=== PATIENT | male | born 1955 | race Caucasian/White ===

== ENCOUNTER 2017-03-09 16:51 | Emergency (ER) | payer OTHER ==
--- NOTE | 2017-03-09 17:51 | CT ---
CT OF CERVICAL SPINE NONCONTRAST 03/09/17 INDICATION: Neck pain. FINDINGS: There is patient motion which degrades image quality and limits the evaluation. Evidence of anterior metallic fusion spans the C4 through C6 levels with intradiscal space devices at C4-5 and C5-6. No definite evidence for hardware complication. Multilevel degenerative change of the cervical spine is present without acute fracture visualized. Craniocervical junction is intact. IMPRESSION: Postoperative cervical spine with multilevel degenerative change. No acute fracture is seen. POS: [facility]
== END 2017-03-09 18:00 | disposition home or self-care (01) ==
LOC: MADERS 16:51
DX: S16.1XXA Strain of muscle, fascia and tendon at neck level, initial encounter (principal); F17.210 Nicotine dependence, cigarettes, uncomplicated; Z86.14 Personal history of Methicillin resistant Staphylococcus aureus infection; X58.XXXA Exposure to other specified factors, initial encounter
CPT/HCPCS: 72125

== ENCOUNTER 2018-06-03 15:03 | Emergency (ER) | payer OTHER ==
[2018-06-03] MEDS ORDERED: Ketorolac Tromethamine 60 MG/2 ML VIAL ONE (16:06)
--- NOTE | 2018-06-03 18:24 | CT ---
CT HEAD WITHOUT CONTRAST: INDICATIONS: Fall with injury to head. TECHNIQUE: Multiple axial tomograms obtained through the head without IV enhancement. FINDINGS: The ventricles have normal size and position. Mild cortical volume loss. No evidence of intracrania l hemorrhage or mass. No evidence of cortical infarct. The paranasal sinuses are well aerated. The bony calvarium appears intact. IMPRESSION: No acute findings. POS: [facility]
--- NOTE | 2018-06-03 18:29 | CT ---
NONCONTRAST CT CERVICAL SPINE: Date: 06/03/18 HISTORY: Patient fell out of chair 5 days ago. Patient now has continued neck pain. COMPARISON: 03/09/17. TECHNIQUE: Contiguous axial CT images are obtained through the cervical spine from the skull base to the level o f the T2 vertebral body. Sagittal and coronal reformatted images are provided. FINDINGS: Again noted are postsurgical changes related to anterior cervical fusion with anterior plate and scre ws transfixing the C4-5 and C5-6 levels. Interbody fusion material is seen at these levels as well. N o hardware complication is seen. Multilevel degenerative changes are again present. There is no fract ure or subluxation involving the cervical spine. CT cervical spine is overall stable from prior exam. IMPRESSION: 1. Postoperative changes and multilevel degenerative changes of the cervical spine. 2. No fracture or subluxation involving the cervical spine. POS: [facility]
== END 2018-06-03 17:00 | disposition home or self-care (01) ==
LOC: MADERS 15:03
DX: S16.1XXA Strain of muscle, fascia and tendon at neck level, initial encounter (principal); S00.03XA Contusion of scalp, initial encounter; F17.210 Nicotine dependence, cigarettes, uncomplicated; W22.8XXA Striking against or struck by other objects, initial encounter
CPT/HCPCS: 70450; 72125; 96372; J1885

== ENCOUNTER 2019-04-01 13:39 | Emergency (ER) | payer OTHER ==
[~2019-04-01 13:39] MED LIST: Sodium Chloride 0.9% 1,000 ML BAG ONE; Sodium Chloride 0.9% 500 ML BAG ONE
--- NOTE | 2019-04-01 14:27 | RAD ---
XR Chest 1 View Portable HISTORY: Tachycardia COMPARISON: 09/13/2016 FINDINGS: The heart size is normal. The lungs are well expanded without focal areas of consolidation, pneumothorax or pleural effusions. Old right-sided rib fractures are again noted. IMPRESSION: No radiographic evidence of acute cardiopulmonary process.
[2019-04-01 14:28] LABS: #Basophils 0.1 thou/uL (0.0-0.2); #Eosinphils 0.4 thou/uL (0.0-0.7); #Lymphocytes 1.5 thou/uL (1.20-3.40); #Monocytes 0.6 thou/uL (0.11-0.59); #Neutrophils 4.5 thou/uL (1.40-6.50); %Basophils 1.1 % (0.0-1.0); %Eosinophils 5.6 % (0.0-10.0); %Neutrophils 64.4 % (42.0-75.0); Hemoglobin 12.3 g/dL (14.0-18.0); Mean Corpuscular HGB CONC 35.2 g/dL (32.0-36.0); Mean Corpuscular Hemoglobin 32.7 pg (27.0-31.0); Mean Corpuscular Volume 92.8 fL (78.0-98.0); Mean Platelet Volume 5.5 fL (7.4-10.4); Platelet Count 282 thou/uL (130-400); RBC Distribution Width 11.2 % (11.5-14.5); Red Blood Cell (RBC) Count 3.77 mill/uL (4.70-6.10)
[2019-04-01] MEDS ORDERED: Metoprolol Tartrate 5 MG/5 ML VIAL ONE (14:33)
[2019-04-01] MEDS ORDERED: Thiamine HCl 200 MG/2 ML VIAL ONE (14:33)
[2019-04-01 14:36] LABS: INR-International Normal Ratio 1.1; PTT 39.1 SEC (22.9-36.1); Prothrombin Time 14.2 SEC (12.0-14.7)
[2019-04-01 14:43] LABS: ALT (SGPT) 13 U/L (8-55); AST (SGOT) 22 U/L (5-34); Albumin 4.3 g/dL (3.4-4.8); Alkaline Phosphatase 90 U/L (40-150); Anion Gap 16 mmol/L (10-20); BUN (Urea Nitrogen) 19 mg/dL (8.4-25.7); Bilirubin, Total 1.1 mg/dL (0.2-1.2); Calc. Creatinine Clearance 0 mL/min (70-130); Calcium 9.7 mg/dL (7.8-10.44); Carbon Dioxide 23 mmol/L (23-31); Chloride 92 mmol/L (98-107); Estimated GFR-MDRD 45; Glucose 100 mg/dL (80-115); Potassium 4.2 mmol/L (3.5-5.1); Protein, Total 7.3 g/dL (5.8-8.1); Sodium 127 mmol/L (136-145)
[2019-04-01 14:44] LABS: D-Dimer Test Less than 0.27 *mcg/mL (0.27-0.43)
[2019-04-01] MEDS ORDERED: Multivit, Adult Inj 10 ML VIAL ONE (14:58)
[2019-04-01] MEDS ORDERED: Lorazepam 2 MG/ML VIAL ONE (14:59)
[2019-04-01 15:22] LABS: Bilirubin Negative (Negative); Blood, Urine Trace (Negative); Clarity Clear (Clear); Glucose, Urine (Dipstick) Negative (Negative); Leukocyte Negative (Negative); Nitrite Negative (Negative); Protein, Urine (Dipstick) Negative (Neg-Trace); Urobilinogen 0.2 mg/dL (Less than 2)
[2019-04-01 15:26] LABS: Bacteria/HPF Rare-Few HPF (None Seen); RBC/HPF 0-3 HPF (0-3); Squamous Epithelial 0-3 HPF (0-3); WBC/HPF 0-3 HPF (0-3)
== END 2019-04-01 15:45 | disposition short-term general hospital (02) ==
LOC: MADERS 13:39
DX: I48.91 Unspecified atrial fibrillation (principal); E87.1 Hypo-osmolality and hyponatremia; F17.210 Nicotine dependence, cigarettes, uncomplicated; Z79.899 Other long term (current) drug therapy
CPT/HCPCS: 71045; 80053; 80307; 81003; 81015; 83605; 84443; 84484; 85025; 85379; 85610; 85730; 93005; 94760; 96361; 96372; 96374; 96375; J2060; J3411; J7050

== ENCOUNTER 2019-05-01 12:52 | Outpatient (CLI) | payer OTHER ==
--- NOTE | 2019-05-01 13:21 | CT ---
EXAM: CT brain without contrast HISTORY: Difficulty walking. Stroke like symptoms COMPARISON: 06/03/2018 TECHNIQUE: Multiple contiguous axial images were obtained and a CT of the brain without contrast. FINDINGS: There are scattered hypodensities in the subcortical and periventricular white matter consi stent with small vessel ischemic disease. There is no evidence of hydrocephalus, intracranial hemorrhage, or extra-axial fluid collection. The calvarium and overlying soft tissues are unremarkable. The visualized paranasal sinuses and masto id air cells are well aerated. IMPRESSION: No evidence of acute intracranial abnormality
== END 2019-05-01 12:53 | disposition home or self-care (01) ==
LOC: MADCT 12:52
PROVIDERS: ATTEND Family Medicine
DX: R29.90 Unspecified symptoms and signs involving the nervous system (principal)
CPT/HCPCS: 70450

== ENCOUNTER 2019-07-20 11:58 | Emergency (ER) | payer OTHER ==
--- NOTE | 2019-07-20 13:56 | RAD ---
RIGHT HUMBERUS FRONTAL AND LATERAL IMAGIN07/20/2019 HISTORY: Pain. COMPARISON: None. FINDINGS: No acute fracture. IMPRESSION: No acute osseous abnormality. POS: [facility]
== END 2019-07-20 14:35 | disposition home or self-care (01) ==
LOC: MADERS 11:58
DX: S43.401A Unspecified sprain of right shoulder joint, initial encounter (principal); S40.021A Contusion of right upper arm, initial encounter; W18.30XA Fall on same level, unspecified, initial encounter

== ENCOUNTER 2019-10-05 08:50 | Emergency (ER) | payer OTHER ==
[2019-10-05 09:32] LABS: #Basophils 0.1 thou/uL (0.0-0.2); #Eosinphils 0.3 thou/uL (0.0-0.7); #Lymphocytes 1.7 thou/uL (1.20-3.40); #Monocytes 0.8 thou/uL (0.11-0.59); #Neutrophils 4.3 thou/uL (1.40-6.50); %Basophils 0.9 % (0.0-1.0); %Eosinophils 3.7 % (0.0-10.0); %Lymphocytes 23.7 % (21.0-51.0); %Monocytes 11.1 % (0.0-10.0); %Neutrophils 60.7 % (42.0-75.0); Hemoglobin 13.4 g/dL (14.0-18.0); Mean Corpuscular HGB CONC 32.7 g/dL (32.0-36.0); Mean Corpuscular Hemoglobin 32.2 pg (27.0-31.0); Mean Corpuscular Volume 98.6 fL (78.0-98.0); Mean Platelet Volume 5.9 fL (7.4-10.4); Platelet Count 384 thou/uL (130-400); RBC Distribution Width 11.2 % (11.5-14.5); Red Blood Cell (RBC) Count 4.16 mill/uL (4.70-6.10); White Blood Cell (WBC) Count 7.1 thou/uL (4.8-10.8)
--- NOTE | 2019-10-05 09:36 | RAD ---
EXAM: XR Foot Lt 3 View STANDARD PROVIDED CLINICAL HISTORY: Pain FINDINGS: Comparison 09/18/2019. There is no evidence for fracture or other acute osseous abnormality. Alignment appears anatomic. Alma nt spaces appear preserved. IMPRESSION: No evidence for an acute osseous abnormality. If there is persistent clinical concern, conservative m anagement and follow-up imaging advised.
[2019-10-05 09:46] LABS: ALT (SGPT) 19 U/L (8-55); AST (SGOT) 16 U/L (5-34); Albumin 3.9 g/dL (3.4-4.8); Alkaline Phosphatase 128 U/L (40-110); Anion Gap 15 mmol/L (10-20); BUN (Urea Nitrogen) 17 mg/dL (8.4-25.7); Bilirubin, Total 0.6 mg/dL (0.2-1.2); Calc. Creatinine Clearance 0 mL/min (70-130); Calcium 9.2 mg/dL (7.8-10.44); Carbon Dioxide 23 mmol/L (23-31); Chloride 98 mmol/L (98-107); Estimated GFR-MDRD 58; Glucose 98 mg/dL (80-115); Potassium 4.3 mmol/L (3.5-5.1); Protein, Total 6.9 g/dL (5.8-8.1); Sodium 132 mmol/L (136-145)
[2019-10-05] MEDS ORDERED: Ibuprofen 800 MG TAB ONE (10:41)
[2019-10-05] MEDS ORDERED: Cephalexin 500 MG CAP ONE (11:15)
== END 2019-10-05 13:11 | disposition home or self-care (01) ==
LOC: MADERS 08:50
DX: L97.529 Non-pressure chronic ulcer of other part of left foot with unspecified severity (principal); S91.312D Laceration without foreign body, left foot, subsequent encounter; I48.91 Unspecified atrial fibrillation; I49.9 Cardiac arrhythmia, unspecified; I10 Essential (primary) hypertension; F17.210 Nicotine dependence, cigarettes, uncomplicated; Z79.899 Other long term (current) drug therapy; W22.8XXD Striking against or struck by other objects, subsequent encounter
CPT/HCPCS: 80053; 85025; 85652

== ENCOUNTER 2019-11-06 09:49 | Outpatient (CLI) | payer MEDICARE, OTHER ==
--- NOTE | 2019-11-06 11:22 | RAD ---
CHEST 1 VIEW: Date: 11/06/2019 HISTORY: Edema, peripheral. COMPARISON: 04/03/2019. FINDINGS: Multiple bilateral healed rib fractures with some pleural thickening on the left side primarily. Hear t size is within normal limits. No confluent pneumonia, overt edema, or pleural effusion. Stable left costophrenic angle blunting. IMPRESSION: Stable exam. Stable left costophrenic angle blunting and numerous healed bilateral rib fractures and pleural thickening. No significant new process. POS: [facility]
== END 2019-11-06 09:50 | disposition home or self-care (01) ==
LOC: MADRAD 09:49
PROVIDERS: ATTEND Family Medicine
DX: R60.9 Edema, unspecified (principal); J92.9 Pleural plaque without asbestos
CPT/HCPCS: 71045

== ENCOUNTER 2019-11-08 12:53 | Emergency (ER) | payer MEDICARE, OTHER ==
--- NOTE | 2019-11-08 13:54 | RAD ---
Left foot 3 views HISTORY: Infection. Foot pain. COMPARISON: 10/05/2019. FINDINGS: A 0.4 cm minimally displaced fragment is now present at the apical base of the fifth metata rsal. Soft tissue swelling overlies this site. Scattered mild osteophytosis and degenerative changes throughout the foot. Soft tissue swelling over the dorsum of the foot. IMPRESSION: Minimally distracted Cárdenas fracture at the left fifth metatarsal base with overlying soft tissue defect. The pattern and appearance is that of an interval traumatic injury.
[2019-11-08 14:01] LABS: #Basophils 0.1 thou/uL (0.0-0.2); #Eosinphils 0.2 thou/uL (0.0-0.7); #Lymphocytes 1.2 thou/uL (1.20-3.40); #Monocytes 1.1 thou/uL (0.11-0.59); #Neutrophils 5.9 thou/uL (1.40-6.50); %Basophils 1.1 % (0.0-1.0); %Eosinophils 2.7 % (0.0-10.0); %Lymphocytes 14.3 % (21.0-51.0); %Monocytes 13.3 % (0.0-10.0); %Neutrophils 68.6 % (42.0-75.0); Hemoglobin 10.7 g/dL (14.0-18.0); Mean Corpuscular HGB CONC 33.7 g/dL (32.0-36.0); Mean Corpuscular Hemoglobin 33.5 pg (27.0-31.0); Mean Corpuscular Volume 99.2 fL (78.0-98.0); Mean Platelet Volume 5.1 fL (7.4-10.4); Platelet Count 362 thou/uL (130-400); Red Blood Cell (RBC) Count 3.21 mill/uL (4.70-6.10); White Blood Cell (WBC) Count 8.6 thou/uL (4.8-10.8)
[2019-11-08 14:14] LABS: ALT (SGPT) 17 U/L (8-55); AST (SGOT) 24 U/L (5-34); Albumin 3.6 g/dL (3.4-4.8); Alkaline Phosphatase 103 U/L (40-110); Anion Gap 16 mmol/L (10-20); BUN (Urea Nitrogen) 14 mg/dL (8.4-25.7); Calc. Creatinine Clearance 0 mL/min (70-130); Carbon Dioxide 25 mmol/L (23-31); Chloride 96 mmol/L (98-107); Estimated GFR-MDRD 51; Globulin 2.7 g/dL (2.4-3.5); Glucose 89 mg/dL (80-115); Potassium 3.9 mmol/L (3.5-5.1); Protein, Total 6.3 g/dL (5.8-8.1); Sodium 133 mmol/L (136-145)
[2019-11-08] MEDS ORDERED: Piperacillin/Tazobactam 4.5 GM VIAL ONE (14:50)
[2019-11-08] MEDS ORDERED: Sodium Chloride 0.9% 100 ML ONE ×2 (14:50→15:10)
[2019-11-08] MEDS ORDERED: Sodium Chloride 0.9% 1,000 ML ONE (14:50)
[2019-11-08] MEDS ORDERED: Sodium Chloride 0.9% 250 ML 250 ML ONE (15:25)
== END 2019-11-08 15:40 | disposition short-term general hospital (02) ==
LOC: MADERS 12:53
DX: S92.352B Displaced fracture of fifth metatarsal bone, left foot, initial encounter for open fracture (principal); L97.429 Non-pressure chronic ulcer of left heel and midfoot with unspecified severity; I48.91 Unspecified atrial fibrillation; I10 Essential (primary) hypertension; F17.210 Nicotine dependence, cigarettes, uncomplicated; Z79.899 Other long term (current) drug therapy; X58.XXXA Exposure to other specified factors, initial encounter
CPT/HCPCS: 36415; 80053; 83605; 85025; 86140; 96365; 96375; J2543; J3370; J3490; J7050

== ENCOUNTER 2019-11-14 19:02 | Inpatient (IN) | payer MEDICARE, MEDICAID ==
[2019-11-14] MEDS: HYDROcodone/Acetaminophen 10/325 mg Tablet PO PRN (21:31)
[2019-11-14] MEDS: Gabapentin 300 MG CAP PO SCH (21:32)
[2019-11-14] MEDS: Magnesium Oxide 400 MG TAB PO SCH (21:32)
[2019-11-14] MEDS: Cefepime 1 GM in Sodium Chloride 0.9% 100 ML IVPB SCH (22:09)
[2019-11-15] MEDS: HYDROcodone/Acetaminophen 10/325 mg Tablet PO PRN ×2 (03:45→21:20)
[2019-11-15] MEDS: Digoxin 0.125 MG TAB PO SCH (08:57)
[2019-11-15] MEDS: Clopidogrel Bisulfate 75 MG TAB PO SCH (08:57)
[2019-11-15] MEDS: Bupropion 150 MG XL TAB PO SCH (08:57)
[2019-11-15] MEDS: Losartan 25 MG TAB PO SCH (08:57)
[2019-11-15] MEDS: Magnesium Oxide 400 MG TAB PO SCH ×2 (08:57→21:20)
[2019-11-15] MEDS: Multivit, Therapeutic 1 TAB PO SCH (08:57)
[2019-11-15] MEDS: Potassium Chloride 20 MEQ TAB PO SCH (08:57)
[2019-11-15] MEDS: Carvedilol 12.5 MG TAB PO SCH ×2 (08:57→17:45)
[2019-11-15] MEDS: Aspirin Chewable 81 MG TAB PO SCH (08:57)
[2019-11-15] MEDS: Gabapentin 300 MG CAP PO SCH ×2 (08:57→21:22)
[2019-11-15] MEDS: Nicotine 21 MG PATCH TOP SCH (08:58)
[2019-11-15] MEDS: Hydrochlorothiazide 25 MG TAB PO SCH (08:58)
[2019-11-15] MEDS: Cefepime 1 GM in Sodium Chloride 0.9% 100 ML IVPB SCH (11:05)
[2019-11-15] MEDS: Loratadine 10 MG TAB PO SCH (11:20)
[2019-11-15] MEDS ORDERED: Fluticasone Propionate Nasal Spray 16 gm Bottle NASAL SCH (13:00)
[2019-11-15 13:38] LABS: Vancomycin, Random 14.6 ug/mL (See Comment)
[2019-11-15] MEDS: Vancomycin HCl 1 GM in Sodium Chloride 0.9% 250 ML 250 ML IVPB SCH (14:26)
[2019-11-16] MEDS: Cefepime 1 GM in Sodium Chloride 0.9% 100 ML IVPB SCH ×3 (00:37→22:27)
--- NOTE | 2019-11-16 08:35 | HP ---
PRIMARY CARE PHYSICIAN: Trevor Vaz. REASON FOR ADMISSION: For long-term IV antibiotic, wound care and skilled rehabilitation status post osteomyelitis of the left foot. HISTORY OF PRESENT ILLNESS: Mr. Young is a 64-year-old male with a medical history of ALS, diagnosed 10 years ago. The patient is wheelchair- bound. He has a history of MRSA endocarditis in 2017, completed treatment then, chronic atrial fibrillation with rate controlled. The patient is a poor candidate per Cardiology for anticoagulation and history of urinary retention. The patient presented to the emergency room on November 07 due to draining left foot wound. He stated he had been to the emergency room and his primary care doctor 3-4 times and has been treated with multiple antibiotics but the wound continued to worsen. The patient stated he had been banging his left foot over the floor for the past month and developed a wound to the lateral aspect of the foot that has increased in size. He said he was treated with Keflex and Cipro with no improvement, so he presented to the ED. The patient was subsequently admitted and started on IV vancomycin and Zosyn. He was seen by ID specialist, Dr. He, and wound culture was done. Wound culture grew enterococcus and bautista susceptible Pseudomonas. The patient also had an MRI of his lower extremities and an ultrasound. The MRI did confirm osteomyelitis to the left 5th metatarsal bone. The patient during hospitalization started episodes of diarrhea and he was convinced this was due to the Zosyn, so the patient declined to take Zosyn continuously. ID specialist, Dr. He decided to switch this to cefepime twice a day with continuation of the vancomycin. The patient also had ultrasound done to the foot and this showed mid SFA and distal monophasic signals with tardus parvus waveforms. Due to this, he was seen by Dr. James Herrera who on the , did an abdominal aortogram, left common femoral artery angiogram with left leg runoff, left superficial femoral artery angiogram and percutaneous transluminal angioplasty of the left superficial femoral artery with drug- eluting balloon. The patient tolerated the procedure well. The patient states that he felt improvement after Dr. Herrera performed a revascularization and he could feel some sensation in his left foot compared to before. The decision was made to transfer the patient to [facility] for skilled rehabilitation for long-term antibiotics and wound care prior to discharge back to his home. I saw Mr. Young today and examined him in his room. He was comfortable sitting by the side of his bed, having his lunch. He complained he was upset. The ER doctor he had seen multiple times, did not take his foot injury seriously and this was what caused his osteomyelitis. He was also upset about night nurse as he wanted his bed alarm off. I explained to the patient we will talk to the night nurse and consider his options. The patient wants to continue IV antibiotics twice a day long- term and he is willing to stay in facility for that and get some physical therapy and wound care management. PAST MEDICAL HISTORY: ALS, atrial fibrillation, hypertension, history of MRSA endocarditis in 2017, urinary retention. PAST SURGICAL HISTORY: Right hand surgery per the patient. FAMILY HISTORY: The patient reports hypertension. SOCIAL HISTORY: Lives alone, he is wheelchair bound. He has a daughter, Samantha who is the [id number]. He states he is a tobacco smoker. He drinks alcohol occasionally. CODE STATUS: The patient is a DNAR. MEDICATIONS: 1. [place] 1 tab q.6 p.r.n. pain. 2. DuoNeb 3 mL q.6 p.r.n. shortness of breath or wheezing. 3. Aspirin 81 mg daily. 4. Wellbutrin 150 daily. 5. Coreg 12.5 b.i.d. 6. Cefepime 1 g b.i.d. 7. Plavix 75 daily. 8. Digoxin 0.125 q.a.m. 9. Lovenox 40 q.2 days. 10. Gabapentin 300 b.i.d. 11. Hydrochlorothiazide 12.5 daily. 12. Claritin 10 daily. 13. Losartan 50 daily. 14. Mag-Ox 400 b.i.d. 15. Multivitamin one tab daily. 16. Nicotine patch topical daily. 17. K-Dur 40 mEq daily. REVIEW OF SYSTEMS: The following review of systems was negative unless otherwise mentioned in HPI. CONSTITUTIONAL: Denies weight loss, weight gain, ability to conduct usual activities. EYES: Denies double vision or pain. NOSE: Denies bleeding. MOUTH: Denies any sores or lesions. NECK: No stiffness, pain, or tenderness. RESPIRATORY: Denies any fever or cough. He complains of occasional shortness of breath due to his ALS. GASTROINTESTINAL: Denies abdominal pain, nausea, vomiting, and complains of diarrhea, but states it is resolving. GENITOURINARY: Denies urgency, frequency, or dysuria. MUSCULOSKELETAL: Complains of foot pain. Complains of gait instability. NEUROLOGICAL: Denies depression or anxiety. PHYSICAL EXAMINATION: VITAL SIGNS: Temperature 96.5, pulse 90, respiratory rate 20, O2 saturation 95% on room air, blood pressure 162/96. GENERAL: The patient is alert, awake, and oriented x3. No apparent distress. HEENT: Normocephalic, atraumatic. Moist oral mucous membranes. PERRL. Anicteric sclerae. NECK: Supple. No JVD. HEART: S1 and S2. Irregular. RESPIRATORY: Clear to auscultation bilaterally. No wheezing, rales, or rhonchi. GASTROINTESTINAL: Positive bowel sounds. Nontender and nondistended. EXTREMITIES: No edema. Lateral foot ulcer with mild to moderate erythema around the ulcerated area. Mild drainage noted. The patient also has healing lesions on his toes and some mild swelling. MUSCULOSKELETAL: Lower extremity strength 1/5 throughout. Upper extremity strength 3/5 throughout. PSYCHIATRY: Normal affect. Normal behavior. Alert, awake, and oriented x3. ASSESSMENT: 1. Osteomyelitis of the left foot, needing long-term IV antibiotics. 2. Left foot ulcer. 3. Chronic atrial fibrillation, not a candidate for anticoagulation due to recurrent falls. 4. ALS. 5. Tobacco abuse. 6. Hypertension. 7. Chronic kidney disease. PLAN: We will admit patient to [facility] for IV antibiotic with vancomycin daily and cefepime 1 g b.i.d for 4 weeks. We will get vancomycin troughs routinely with pharmacy to dose. We will consult Wound Care for wound dressing changes. We will consult Physical Therapy for strengthening, balance, and gait training. We will consult Occupational Therapy to help with activities of daily living. We will resume patient's home medications. We will place the patient on GI prophylaxis with Protonix and DVT prophylaxis with Lovenox every other day. We will monitor blood work once a week. Estimated length of stay, until completion of IV antibiotics which we will coordinate with Dr. He as no specifics were given, he just said a few weeks in his last note. Job ID: [id number] [facility]
[2019-11-16] MEDS: Potassium Chloride 20 MEQ TAB PO SCH (09:00)
[2019-11-16] MEDS: Carvedilol 12.5 MG TAB PO SCH ×2 (09:00→17:23)
[2019-11-16] MEDS: Bupropion 150 MG XL TAB PO SCH (09:01)
[2019-11-16] MEDS: Losartan 25 MG TAB PO SCH (09:01)
[2019-11-16] MEDS: Aspirin Chewable 81 MG TAB PO SCH (09:01)
[2019-11-16] MEDS: Loratadine 10 MG TAB PO SCH (09:02)
[2019-11-16] MEDS: Multivit, Therapeutic 1 TAB PO SCH (09:02)
[2019-11-16] MEDS: Magnesium Oxide 400 MG TAB PO SCH ×2 (09:02→21:32)
[2019-11-16] MEDS: Clopidogrel Bisulfate 75 MG TAB PO SCH (09:02)
[2019-11-16] MEDS: Gabapentin 300 MG CAP PO SCH ×2 (09:02→21:32)
[2019-11-16] MEDS: Nicotine 21 MG PATCH TOP SCH (09:03)
[2019-11-16] MEDS: Enoxaparin Sodium 40 MG/0.4 ML SYRINGE SC SCH (09:07)
[2019-11-16] MEDS: Fluticasone Propionate Nasal Spray 16 gm Bottle NASAL SCH (09:07)
[2019-11-16] MEDS: Hydrochlorothiazide 25 MG TAB PO SCH (09:07)
[2019-11-16] MEDS: Digoxin 0.125 MG TAB PO SCH (09:14)
[2019-11-16] MEDS: Vancomycin HCl 1 GM in Sodium Chloride 0.9% 250 ML 250 ML IVPB SCH (15:12)
[2019-11-16] MEDS: HYDROcodone/Acetaminophen 10/325 mg Tablet PO PRN (21:36)
[2019-11-17] MEDS: Clopidogrel Bisulfate 75 MG TAB PO SCH (08:20)
[2019-11-17] MEDS: Potassium Chloride 20 MEQ TAB PO SCH (08:20)
[2019-11-17] MEDS: Magnesium Oxide 400 MG TAB PO SCH ×2 (08:20→20:39)
[2019-11-17] MEDS: Carvedilol 12.5 MG TAB PO SCH ×2 (08:20→17:08)
[2019-11-17] MEDS: Gabapentin 300 MG CAP PO SCH ×2 (08:21→20:39)
[2019-11-17] MEDS: Losartan 25 MG TAB PO SCH (08:21)
[2019-11-17] MEDS: Loratadine 10 MG TAB PO SCH (08:21)
[2019-11-17] MEDS: Digoxin 0.125 MG TAB PO SCH (08:21)
[2019-11-17] MEDS: Hydrochlorothiazide 25 MG TAB PO SCH (08:21)
[2019-11-17] MEDS: Multivit, Therapeutic 1 TAB PO SCH (08:21)
[2019-11-17] MEDS: Aspirin Chewable 81 MG TAB PO SCH (08:22)
[2019-11-17] MEDS: Nicotine 21 MG PATCH TOP SCH (08:22)
[2019-11-17] MEDS: Fluticasone Propionate Nasal Spray 16 gm Bottle NASAL SCH (08:22)
[2019-11-17] MEDS: Bupropion 150 MG XL TAB PO SCH (08:30)
[2019-11-17] MEDS: Cefepime 1 GM in Sodium Chloride 0.9% 100 ML IVPB SCH ×2 (11:09→22:40)
[2019-11-17] MEDS ORDERED: Sodium Chloride Irrig Solution 250 ML BOT ONE (14:06)
[2019-11-17 14:22] LABS: Vancomycin, Trough 15.6 ug/mL
[2019-11-17] MEDS: Vancomycin HCl 1 GM in Sodium Chloride 0.9% 250 ML 250 ML IVPB SCH (15:40)
[2019-11-17] MEDS: HYDROcodone/Acetaminophen 10/325 mg Tablet PO PRN (22:45)
[2019-11-18] MEDS: Bupropion 150 MG XL TAB PO SCH (08:28)
[2019-11-18] MEDS: Aspirin Chewable 81 MG TAB PO SCH (08:28)
[2019-11-18] MEDS: Magnesium Oxide 400 MG TAB PO SCH ×2 (08:28→20:19)
[2019-11-18] MEDS: Gabapentin 300 MG CAP PO SCH ×2 (08:29→20:19)
[2019-11-18] MEDS: Loratadine 10 MG TAB PO SCH (08:29)
[2019-11-18] MEDS: Carvedilol 12.5 MG TAB PO SCH ×2 (08:29→17:34)
[2019-11-18] MEDS: Hydrochlorothiazide 25 MG TAB PO SCH (08:30)
[2019-11-18] MEDS: Clopidogrel Bisulfate 75 MG TAB PO SCH (08:31)
[2019-11-18] MEDS: Multivit, Therapeutic 1 TAB PO SCH (08:31)
[2019-11-18] MEDS: Losartan 25 MG TAB PO SCH (08:31)
[2019-11-18] MEDS: Enoxaparin Sodium 40 MG/0.4 ML SYRINGE SC SCH (08:32)
[2019-11-18] MEDS: Nicotine 21 MG PATCH TOP SCH (08:32)
[2019-11-18] MEDS: Fluticasone Propionate Nasal Spray 16 gm Bottle NASAL SCH (08:33)
[2019-11-18] MEDS: Digoxin 0.125 MG TAB PO SCH (08:34)
[2019-11-18] MEDS: Potassium Chloride 20 MEQ TAB PO SCH (09:40)
[2019-11-18] MEDS: HYDROcodone/Acetaminophen 10/325 mg Tablet PO PRN ×2 (09:42→22:32)
[2019-11-18] MEDS ORDERED: Potassium Chloride 10 MEQ TAB PO SCH (09:45)
[2019-11-18] MEDS: Cefepime 1 GM in Sodium Chloride 0.9% 100 ML IVPB SCH ×2 (11:12→22:32)
[2019-11-18] MEDS: Vancomycin HCl 1 GM in Sodium Chloride 0.9% 250 ML 250 ML IVPB SCH (15:03)
[2019-11-19 05:47] LABS: #Basophils 0.1 thou/uL (0.0-0.2); #Eosinphils 0.4 thou/uL (0.0-0.7); #Lymphocytes 2.8 thou/uL (1.20-3.40); #Neutrophils 3.3 thou/uL (1.40-6.50); %Basophils 1.6 % (0.0-1.0); %Eosinophils 4.9 % (0.0-10.0); %Lymphocytes 37.1 % (21.0-51.0); %Monocytes 13.6 % (0.0-10.0); %Neutrophils 42.8 % (42.0-75.0); Hemoglobin 11.7 g/dL (14.0-18.0); Mean Corpuscular HGB CONC 31.7 g/dL (32.0-36.0); Mean Corpuscular Hemoglobin 32.5 pg (27.0-31.0); Mean Corpuscular Volume 102.5 fL (78.0-98.0); Mean Platelet Volume 6.2 fL (7.4-10.4); Platelet Count 398 thou/uL (130-400); RBC Distribution Width 12.9 % (11.5-14.5); White Blood Cell (WBC) Count 7.6 thou/uL (4.8-10.8)
[2019-11-19 05:52] LABS: Anion Gap 15 mmol/L (10-20); BUN (Urea Nitrogen) 14 mg/dL (8.4-25.7); Calc. Creatinine Clearance 55 mL/min (70-130); Calcium 9.7 mg/dL (7.8-10.44); Carbon Dioxide 23 mmol/L (23-31); Chloride 101 mmol/L (98-107); Estimated GFR-MDRD 68; Glucose 92 mg/dL (80-115); Potassium 5.2 mmol/L (3.5-5.1); Sodium 134 mmol/L (136-145)
[2019-11-19] MEDS: Digoxin 0.125 MG TAB PO SCH (08:00)
[2019-11-19] MEDS: Potassium Chloride 10 MEQ TAB PO SCH (08:45)
[2019-11-19] MEDS: Magnesium Oxide 400 MG TAB PO SCH ×2 (08:51→22:02)
[2019-11-19] MEDS: Losartan 25 MG TAB PO SCH (08:51)
[2019-11-19] MEDS: Aspirin Chewable 81 MG TAB PO SCH (08:51)
[2019-11-19] MEDS: Clopidogrel Bisulfate 75 MG TAB PO SCH (08:51)
[2019-11-19] MEDS: Bupropion 150 MG XL TAB PO SCH (08:51)
[2019-11-19] MEDS: Hydrochlorothiazide 25 MG TAB PO SCH (08:51)
[2019-11-19] MEDS: Loratadine 10 MG TAB PO SCH (08:51)
[2019-11-19] MEDS: Multivit, Therapeutic 1 TAB PO SCH (08:51)
[2019-11-19] MEDS: Carvedilol 12.5 MG TAB PO SCH ×2 (08:51→17:31)
[2019-11-19] MEDS: Nicotine 21 MG PATCH TOP SCH (08:52)
[2019-11-19] MEDS: Gabapentin 300 MG CAP PO SCH ×2 (08:52→22:01)
[2019-11-19] MEDS: Fluticasone Propionate Nasal Spray 16 gm Bottle NASAL SCH (08:52)
[2019-11-19] MEDS: Cefepime 1 GM in Sodium Chloride 0.9% 100 ML IVPB SCH ×2 (11:03→22:01)
[2019-11-19 14:41] LABS: Vancomycin, Trough 17.2 ug/mL
[2019-11-19] MEDS: Vancomycin HCl 1 GM in Sodium Chloride 0.9% 250 ML 250 ML IVPB SCH (16:06)
[2019-11-19] MEDS: HYDROcodone/Acetaminophen 10/325 mg Tablet PO PRN ×2 (17:39→23:17)
[2019-11-20] MEDS: Fluticasone Propionate Nasal Spray 16 gm Bottle NASAL SCH (09:03)
[2019-11-20] MEDS: Nicotine 21 MG PATCH TOP SCH (09:04)
[2019-11-20] MEDS: Potassium Chloride 10 MEQ TAB PO SCH (09:05)
[2019-11-20] MEDS: Digoxin 0.125 MG TAB PO SCH (09:05)
[2019-11-20] MEDS: Multivit, Therapeutic 1 TAB PO SCH (09:05)
[2019-11-20] MEDS: Aspirin Chewable 81 MG TAB PO SCH (09:05)
[2019-11-20] MEDS: Carvedilol 12.5 MG TAB PO SCH ×2 (09:05→16:59)
[2019-11-20] MEDS: Magnesium Oxide 400 MG TAB PO SCH ×2 (09:05→21:00)
[2019-11-20] MEDS: Losartan 25 MG TAB PO SCH (09:06)
[2019-11-20] MEDS: Hydrochlorothiazide 25 MG TAB PO SCH (09:06)
[2019-11-20] MEDS: Clopidogrel Bisulfate 75 MG TAB PO SCH (09:06)
[2019-11-20] MEDS: Gabapentin 300 MG CAP PO SCH ×2 (09:06→21:00)
[2019-11-20] MEDS: Bupropion 150 MG XL TAB PO SCH (09:06)
[2019-11-20] MEDS: Loratadine 10 MG TAB PO SCH (09:07)
[2019-11-20] MEDS: Cefepime 1 GM in Sodium Chloride 0.9% 100 ML IVPB SCH (11:28)
[2019-11-20] MEDS: Vancomycin HCl 1 GM in Sodium Chloride 0.9% 250 ML 250 ML IVPB SCH (14:49)
[2019-11-20] MEDS: HYDROcodone/Acetaminophen 10/325 mg Tablet PO PRN (20:59)
[2019-11-21] MEDS: Cefepime 1 GM in Sodium Chloride 0.9% 100 ML IVPB SCH ×3 (01:26→22:17)
[2019-11-21] MEDS: Digoxin 0.125 MG TAB PO SCH (09:44)
[2019-11-21] MEDS: Magnesium Oxide 400 MG TAB PO SCH ×2 (09:44→20:28)
[2019-11-21] MEDS: Bupropion 150 MG XL TAB PO SCH (09:44)
[2019-11-21] MEDS: Carvedilol 12.5 MG TAB PO SCH ×2 (09:44→17:30)
[2019-11-21] MEDS: Multivit, Therapeutic 1 TAB PO SCH (09:44)
[2019-11-21] MEDS: Loratadine 10 MG TAB PO SCH (09:44)
[2019-11-21] MEDS: Gabapentin 300 MG CAP PO SCH ×2 (09:44→20:28)
[2019-11-21] MEDS: Clopidogrel Bisulfate 75 MG TAB PO SCH (09:44)
[2019-11-21] MEDS: Aspirin Chewable 81 MG TAB PO SCH (09:44)
[2019-11-21] MEDS: Losartan 25 MG TAB PO SCH (09:45)
[2019-11-21] MEDS: Hydrochlorothiazide 25 MG TAB PO SCH (09:45)
[2019-11-21] MEDS: Nicotine 21 MG PATCH TOP SCH (09:45)
[2019-11-21] MEDS: Fluticasone Propionate Nasal Spray 16 gm Bottle NASAL SCH (09:46)
[2019-11-21 14:21] LABS: Vancomycin, Trough 18.1 ug/mL
[2019-11-21] MEDS: Vancomycin HCl 1 GM in Sodium Chloride 0.9% 250 ML 250 ML IVPB SCH (15:32)
[2019-11-22] MEDS: Bupropion 150 MG XL TAB PO SCH (09:05)
[2019-11-22] MEDS: Magnesium Oxide 400 MG TAB PO SCH ×2 (09:05→20:38)
[2019-11-22] MEDS: Hydrochlorothiazide 25 MG TAB PO SCH (09:05)
[2019-11-22] MEDS: Losartan 25 MG TAB PO SCH (09:05)
[2019-11-22] MEDS: Multivit, Therapeutic 1 TAB PO SCH (09:05)
[2019-11-22] MEDS: Clopidogrel Bisulfate 75 MG TAB PO SCH (09:05)
[2019-11-22] MEDS: Nicotine 21 MG PATCH TOP SCH (09:06)
[2019-11-22] MEDS: Gabapentin 300 MG CAP PO SCH ×2 (09:06→20:38)
[2019-11-22] MEDS: Loratadine 10 MG TAB PO SCH (09:06)
[2019-11-22] MEDS: Aspirin Chewable 81 MG TAB PO SCH (09:06)
[2019-11-22] MEDS: Carvedilol 12.5 MG TAB PO SCH ×2 (09:06→17:02)
[2019-11-22] MEDS: Fluticasone Propionate Nasal Spray 16 gm Bottle NASAL SCH ×2 (09:06→09:26)
[2019-11-22] MEDS: Digoxin 0.125 MG TAB PO SCH (09:07)
[2019-11-22] MEDS: Cefepime 1 GM in Sodium Chloride 0.9% 100 ML IVPB SCH ×2 (11:38→20:39)
[2019-11-22] MEDS: Vancomycin HCl 1 GM in Sodium Chloride 0.9% 250 ML 250 ML IVPB SCH (15:21)
[2019-11-22] MEDS: HYDROcodone/Acetaminophen 10/325 mg Tablet PO PRN (23:16)
[2019-11-23] MEDS: Cefepime 1 GM in Sodium Chloride 0.9% 100 ML IVPB SCH ×2 (08:46→20:24)
[2019-11-23] MEDS: Aspirin Chewable 81 MG TAB PO SCH (08:47)
[2019-11-23] MEDS: Multivit, Therapeutic 1 TAB PO SCH (08:47)
[2019-11-23] MEDS: Bupropion 150 MG XL TAB PO SCH (08:47)
[2019-11-23] MEDS: Clopidogrel Bisulfate 75 MG TAB PO SCH (08:47)
[2019-11-23] MEDS: Hydrochlorothiazide 25 MG TAB PO SCH (08:47)
[2019-11-23] MEDS: Magnesium Oxide 400 MG TAB PO SCH ×2 (08:47→20:25)
[2019-11-23] MEDS: Carvedilol 12.5 MG TAB PO SCH ×2 (08:47→16:55)
[2019-11-23] MEDS: Fluticasone Propionate Nasal Spray 16 gm Bottle NASAL SCH (08:48)
[2019-11-23] MEDS: Loratadine 10 MG TAB PO SCH (08:48)
[2019-11-23] MEDS: Nicotine 21 MG PATCH TOP SCH (08:48)
[2019-11-23] MEDS: Gabapentin 300 MG CAP PO SCH ×2 (08:48→20:25)
[2019-11-23] MEDS: Losartan 25 MG TAB PO SCH (08:48)
[2019-11-23] MEDS: Digoxin 0.125 MG TAB PO SCH (08:51)
[2019-11-23] MEDS: Vancomycin HCl 1 GM in Sodium Chloride 0.9% 250 ML 250 ML IVPB SCH (14:51)
[2019-11-23] MEDS: HYDROcodone/Acetaminophen 10/325 mg Tablet PO PRN (20:35)
[2019-11-24] MEDS: Fluticasone Propionate Nasal Spray 16 gm Bottle NASAL SCH (09:23)
[2019-11-24] MEDS: Cefepime 1 GM in Sodium Chloride 0.9% 100 ML IVPB SCH ×2 (09:23→21:52)
[2019-11-24] MEDS: Multivit, Therapeutic 1 TAB PO SCH (09:25)
[2019-11-24] MEDS: Bupropion 150 MG XL TAB PO SCH (09:25)
[2019-11-24] MEDS: Hydrochlorothiazide 25 MG TAB PO SCH (09:25)
[2019-11-24] MEDS: Clopidogrel Bisulfate 75 MG TAB PO SCH (09:25)
[2019-11-24] MEDS: Aspirin Chewable 81 MG TAB PO SCH (09:25)
[2019-11-24] MEDS: Carvedilol 12.5 MG TAB PO SCH ×2 (09:25→17:51)
[2019-11-24] MEDS: Losartan 25 MG TAB PO SCH (09:25)
[2019-11-24] MEDS: Gabapentin 300 MG CAP PO SCH ×2 (09:25→21:51)
[2019-11-24] MEDS: Nicotine 21 MG PATCH TOP SCH (09:26)
[2019-11-24] MEDS: Magnesium Oxide 400 MG TAB PO SCH ×2 (09:26→21:51)
[2019-11-24] MEDS: Loratadine 10 MG TAB PO SCH (09:26)
[2019-11-24] MEDS: Digoxin 0.125 MG TAB PO SCH (09:27)
[2019-11-24 14:18] LABS: Vancomycin, Trough 20.6 ug/mL
[2019-11-24] MEDS: Vancomycin HCl 1 GM in Sodium Chloride 0.9% 250 ML 250 ML IVPB SCH (15:23)
[2019-11-24] MEDS: HYDROcodone/Acetaminophen 10/325 mg Tablet PO PRN (22:32)
[2019-11-25 06:01] LABS: Anion Gap 12 mmol/L (10-20); BUN (Urea Nitrogen) 22 mg/dL (8.4-25.7); CRP (Inflammatory) 1.13 mg/dL (= or < 0.5); Calc. Creatinine Clearance 53 mL/min (70-130); Calcium 8.8 mg/dL (7.8-10.44); Carbon Dioxide 24 mmol/L (23-31); Chloride 102 mmol/L (98-107); Estimated GFR-MDRD 65; Glucose 96 mg/dL (80-115); Potassium 4.5 mmol/L (3.5-5.1); Sodium 133 mmol/L (136-145)
[2019-11-25 06:19] LABS: Eosinophils 3 % (0-10); Hemoglobin 9.5 g/dL (14.0-18.0); Hypochromia SLIGHT = 6-15 cells (100X) (0-5/hpf); Lymphocytes 26 % (21-51); MDiff Complete? YES; Macrocytosis SLIGHT = 6-15 cells (100X) (0-5/hpf); Mean Corpuscular HGB CONC 31.8 g/dL (32.0-36.0); Mean Corpuscular Hemoglobin 32.5 pg (27.0-31.0); Mean Corpuscular Volume 102.3 fL (78.0-98.0); Mean Platelet Volume 6.1 fL (7.4-10.4); Metamyelocyte 3 % (0-0); Monocytes 14 % (0-10); Neutrophil 52 % (42-75); Platelet Count 298 thou/uL (130-400); Promyelocytes 2 % (0-0); RBC Distribution Width 12.6 % (11.5-14.5); Red Blood Cell (RBC) Count 2.91 mill/uL (4.70-6.10); Small Platelets SLIGHT; Stomatocytes SLIGHT = 2-5 cells (100X) (0-1/hpf); Target Cells SLIGHT = 2-5 cells (100X) (0-1/hpf); White Blood Cell (WBC) Count 7.5 thou/uL (4.8-10.8)
[2019-11-25] MEDS: Bupropion 150 MG XL TAB PO SCH (09:14)
[2019-11-25] MEDS: Carvedilol 12.5 MG TAB PO SCH ×2 (09:14→17:21)
[2019-11-25] MEDS: Aspirin Chewable 81 MG TAB PO SCH (09:14)
[2019-11-25] MEDS: Cefepime 1 GM in Sodium Chloride 0.9% 100 ML IVPB SCH ×2 (09:15→21:27)
[2019-11-25] MEDS: Clopidogrel Bisulfate 75 MG TAB PO SCH (09:15)
[2019-11-25] MEDS: Loratadine 10 MG TAB PO SCH (09:16)
[2019-11-25] MEDS: Digoxin 0.125 MG TAB PO SCH (09:16)
[2019-11-25] MEDS: Hydrochlorothiazide 25 MG TAB PO SCH (09:16)
[2019-11-25] MEDS: Nicotine 21 MG PATCH TOP SCH (09:17)
[2019-11-25] MEDS: Multivit, Therapeutic 1 TAB PO SCH (09:17)
[2019-11-25] MEDS: Losartan 25 MG TAB PO SCH (09:17)
[2019-11-25] MEDS: Magnesium Oxide 400 MG TAB PO SCH ×2 (09:17→21:33)
[2019-11-25] MEDS: Gabapentin 300 MG CAP PO SCH ×2 (09:17→21:33)
[2019-11-25] MEDS: Fluticasone Propionate Nasal Spray 16 gm Bottle NASAL SCH (09:20)
[2019-11-25] MEDS ORDERED: Zolpidem Tartrate 5 MG TAB PO PRN (12:34)
[2019-11-25 14:19] LABS: Vancomycin, Trough 20.4 ug/mL
[2019-11-25] MEDS: Vancomycin HCl 1 GM in Sodium Chloride 0.9% 250 ML 250 ML IVPB SCH (15:14)
[2019-11-25 15:50] LABS: #Basophils 0.1 thou/uL (0.0-0.2); #Eosinphils 0.6 thou/uL (0.0-0.7); #Lymphocytes 2.5 thou/uL (1.20-3.40); #Monocytes 1.1 thou/uL (0.11-0.59); #Neutrophils 3.7 thou/uL (1.40-6.50); %Basophils 1.3 % (0.0-1.0); %Eosinophils 7.9 % (0.0-10.0); %Lymphocytes 30.7 % (21.0-51.0); %Monocytes 13.9 % (0.0-10.0); %Neutrophils 46.1 % (42.0-75.0)
[2019-11-26] MEDS: Hydrochlorothiazide 25 MG TAB PO SCH (08:45)
[2019-11-26] MEDS: Losartan 25 MG TAB PO SCH (08:46)
[2019-11-26] MEDS: Magnesium Oxide 400 MG TAB PO SCH ×2 (08:46→20:06)
[2019-11-26] MEDS: Bupropion 150 MG XL TAB PO SCH (08:46)
[2019-11-26] MEDS: Clopidogrel Bisulfate 75 MG TAB PO SCH (08:46)
[2019-11-26] MEDS: Carvedilol 12.5 MG TAB PO SCH ×2 (08:46→16:30)
[2019-11-26] MEDS: Nicotine 21 MG PATCH TOP SCH (08:46)
[2019-11-26] MEDS: Fluticasone Propionate Nasal Spray 16 gm Bottle NASAL SCH (08:46)
[2019-11-26] MEDS: Multivit, Therapeutic 1 TAB PO SCH (08:46)
[2019-11-26] MEDS: Aspirin Chewable 81 MG TAB PO SCH (08:46)
[2019-11-26] MEDS: Loratadine 10 MG TAB PO SCH (08:46)
[2019-11-26] MEDS: Gabapentin 300 MG CAP PO SCH ×2 (08:46→20:06)
[2019-11-26] MEDS: Cefepime 1 GM in Sodium Chloride 0.9% 100 ML IVPB SCH ×2 (08:48→20:06)
[2019-11-26] MEDS: Digoxin 0.125 MG TAB PO SCH (08:51)
[2019-11-26] MEDS: Vancomycin HCl 1 GM in Sodium Chloride 0.9% 250 ML 250 ML IVPB SCH (15:24)
[2019-11-26] MEDS: Lidocaine Viscous Sol 2% 15 ml UD Cup SSP SCH ×3 (17:46→18:11)
[2019-11-27] MEDS: Cefepime 1 GM in Sodium Chloride 0.9% 100 ML IVPB SCH ×2 (09:12→20:11)
[2019-11-27] MEDS: Clopidogrel Bisulfate 75 MG TAB PO SCH (09:12)
[2019-11-27] MEDS: Bupropion 150 MG XL TAB PO SCH (09:12)
[2019-11-27] MEDS: Hydrochlorothiazide 25 MG TAB PO SCH (09:12)
[2019-11-27] MEDS: Gabapentin 300 MG CAP PO SCH ×2 (09:12→20:13)
[2019-11-27] MEDS: Aspirin Chewable 81 MG TAB PO SCH (09:12)
[2019-11-27] MEDS: Multivit, Therapeutic 1 TAB PO SCH (09:12)
[2019-11-27] MEDS: Magnesium Oxide 400 MG TAB PO SCH ×2 (09:12→20:13)
[2019-11-27] MEDS: Fluticasone Propionate Nasal Spray 16 gm Bottle NASAL SCH (09:13)
[2019-11-27] MEDS: Losartan 25 MG TAB PO SCH (09:13)
[2019-11-27] MEDS: Carvedilol 12.5 MG TAB PO SCH ×2 (09:13→17:08)
[2019-11-27] MEDS: Loratadine 10 MG TAB PO SCH (09:13)
[2019-11-27] MEDS: Digoxin 0.125 MG TAB PO SCH (09:14)
[2019-11-27] MEDS: Nicotine 21 MG PATCH TOP SCH (09:14)
[2019-11-27] MEDS: Lidocaine Viscous Sol 2% 15 ml UD Cup SSP SCH ×3 (09:17→20:13)
[2019-11-27 14:22] LABS: Vancomycin, Trough 22.9 ug/mL
[2019-11-28] MEDS: Fluticasone Propionate Nasal Spray 16 gm Bottle NASAL SCH (08:46)
[2019-11-28] MEDS: Nicotine 21 MG PATCH TOP SCH (08:46)
[2019-11-28] MEDS: Magnesium Oxide 400 MG TAB PO SCH ×2 (08:48→20:37)
[2019-11-28] MEDS: Hydrochlorothiazide 25 MG TAB PO SCH (08:48)
[2019-11-28] MEDS: Lidocaine Viscous Sol 2% 15 ml UD Cup SSP SCH ×5 (08:48→20:38)
[2019-11-28] MEDS: Bupropion 150 MG XL TAB PO SCH (08:48)
[2019-11-28] MEDS: Clopidogrel Bisulfate 75 MG TAB PO SCH (08:48)
[2019-11-28] MEDS: Multivit, Therapeutic 1 TAB PO SCH (08:48)
[2019-11-28] MEDS: Aspirin Chewable 81 MG TAB PO SCH (08:49)
[2019-11-28] MEDS: Gabapentin 300 MG CAP PO SCH ×2 (08:49→20:37)
[2019-11-28] MEDS: Carvedilol 12.5 MG TAB PO SCH ×2 (08:49→16:17)
[2019-11-28] MEDS: Losartan 25 MG TAB PO SCH (08:49)
[2019-11-28] MEDS: Loratadine 10 MG TAB PO SCH (08:49)
[2019-11-28] MEDS: Cefepime 1 GM in Sodium Chloride 0.9% 100 ML IVPB SCH ×2 (08:50→20:37)
[2019-11-28] MEDS: Digoxin 0.125 MG TAB PO SCH (08:51)
[2019-11-28] MEDS: HYDROcodone/Acetaminophen 10/325 mg Tablet PO PRN ×2 (08:57→16:28)
[2019-11-28 14:26] LABS: Vancomycin, Random 16.2 ug/mL (See Comment)
[2019-11-28] MEDS: Vancomycin HCl 750 MG in Sodium Chloride 0.9% 250 ML 250 ML IVPB SCH (16:17)
[2019-11-29] MEDS: Cefepime 1 GM in Sodium Chloride 0.9% 100 ML IVPB SCH ×2 (08:58→21:16)
[2019-11-29] MEDS: Nicotine 21 MG PATCH TOP SCH (08:59)
[2019-11-29] MEDS: Lidocaine Viscous Sol 2% 15 ml UD Cup SSP SCH ×3 (09:01→21:19)
[2019-11-29] MEDS: Fluticasone Propionate Nasal Spray 16 gm Bottle NASAL SCH (09:01)
[2019-11-29] MEDS: Bupropion 150 MG XL TAB PO SCH (09:02)
[2019-11-29] MEDS: Multivit, Therapeutic 1 TAB PO SCH (09:03)
[2019-11-29] MEDS: Clopidogrel Bisulfate 75 MG TAB PO SCH (09:03)
[2019-11-29] MEDS: Gabapentin 300 MG CAP PO SCH ×2 (09:03→21:18)
[2019-11-29] MEDS: Aspirin Chewable 81 MG TAB PO SCH (09:03)
[2019-11-29] MEDS: Magnesium Oxide 400 MG TAB PO SCH ×2 (09:03→21:20)
[2019-11-29] MEDS: Hydrochlorothiazide 25 MG TAB PO SCH (09:03)
[2019-11-29] MEDS: Digoxin 0.125 MG TAB PO SCH (09:04)
[2019-11-29] MEDS: Losartan 25 MG TAB PO SCH (09:04)
[2019-11-29] MEDS: Loratadine 10 MG TAB PO SCH (09:04)
[2019-11-29] MEDS: Carvedilol 12.5 MG TAB PO SCH ×2 (09:05→17:21)
[2019-11-29] MEDS: HYDROcodone/Acetaminophen 10/325 mg Tablet PO PRN ×2 (14:21→21:46)
[2019-11-29 15:11] LABS: Vancomycin, Trough 17.7 ug/mL
[2019-11-29] MEDS: Vancomycin HCl 750 MG in Sodium Chloride 0.9% 250 ML 250 ML IVPB SCH (17:21)
[2019-11-29] MEDS ORDERED: Vancomycin HCl 750 MG VIAL ONE (17:26)
[2019-11-29] MEDS ORDERED: Sterile Water 10 ML VIAL IVP SCH (18:30)
[2019-11-29] MEDS ORDERED: Activase 2 MG VIAL CATH SCH (18:30)
[2019-11-30] MEDS: HYDROcodone/Acetaminophen 10/325 mg Tablet PO PRN ×2 (05:49→16:12)
[2019-11-30] MEDS: Carvedilol 12.5 MG TAB PO SCH ×2 (08:50→16:11)
[2019-11-30] MEDS: Losartan 25 MG TAB PO SCH (09:46)
[2019-11-30] MEDS: Bupropion 150 MG XL TAB PO SCH (09:48)
[2019-11-30] MEDS: Aspirin Chewable 81 MG TAB PO SCH (09:48)
[2019-11-30] MEDS: Cefepime 1 GM in Sodium Chloride 0.9% 100 ML IVPB SCH ×2 (09:49→20:52)
[2019-11-30] MEDS: Clopidogrel Bisulfate 75 MG TAB PO SCH (09:50)
[2019-11-30] MEDS: Digoxin 0.125 MG TAB PO SCH (09:51)
[2019-11-30] MEDS: Fluticasone Propionate Nasal Spray 16 gm Bottle NASAL SCH (09:51)
[2019-11-30] MEDS: Gabapentin 300 MG CAP PO SCH ×2 (09:52→20:53)
[2019-11-30] MEDS: Hydrochlorothiazide 25 MG TAB PO SCH (09:52)
[2019-11-30] MEDS: Lidocaine Viscous Sol 2% 15 ml UD Cup SSP SCH ×3 (09:53→21:36)
[2019-11-30] MEDS: Magnesium Oxide 400 MG TAB PO SCH ×2 (09:54→20:53)
[2019-11-30] MEDS: Nicotine 21 MG PATCH TOP SCH (09:55)
[2019-11-30] MEDS: Multivit, Therapeutic 1 TAB PO SCH (09:55)
[2019-11-30] MEDS: Loratadine 10 MG TAB PO SCH (09:55)
[2019-11-30] MEDS: Vancomycin HCl 750 MG in Sodium Chloride 0.9% 250 ML 250 ML IVPB SCH (16:09)
[2019-12-01] MEDS: Cefepime 1 GM in Sodium Chloride 0.9% 100 ML IVPB SCH ×3 (09:00→21:06)
[2019-12-01] MEDS: Losartan 25 MG TAB PO SCH (09:33)
[2019-12-01] MEDS: Loratadine 10 MG TAB PO SCH (09:33)
[2019-12-01] MEDS: Hydrochlorothiazide 25 MG TAB PO SCH (09:33)
[2019-12-01] MEDS: Multivit, Therapeutic 1 TAB PO SCH (09:33)
[2019-12-01] MEDS: Nicotine 21 MG PATCH TOP SCH (09:34)
[2019-12-01] MEDS: Gabapentin 300 MG CAP PO SCH ×2 (09:34→21:05)
[2019-12-01] MEDS: Fluticasone Propionate Nasal Spray 16 gm Bottle NASAL SCH (09:34)
[2019-12-01] MEDS: Magnesium Oxide 400 MG TAB PO SCH ×2 (09:34→21:05)
[2019-12-01] MEDS: Aspirin Chewable 81 MG TAB PO SCH (09:34)
[2019-12-01] MEDS: Clopidogrel Bisulfate 75 MG TAB PO SCH (09:34)
[2019-12-01] MEDS: Carvedilol 12.5 MG TAB PO SCH ×2 (09:34→17:18)
[2019-12-01] MEDS: Digoxin 0.125 MG TAB PO SCH (09:35)
[2019-12-01] MEDS: Bupropion 150 MG XL TAB PO SCH (09:57)
[2019-12-01] MEDS ORDERED: Zolpidem Tartrate 5 MG TAB PO PRN (13:35)
[2019-12-01] MEDS ORDERED: clonazePAM 0.5 MG TAB PO PRN (13:40)
[2019-12-01] MEDS ORDERED: Cefepime 1 GM in Sodium Chloride 0.9% 100 ML IVPB SCH (14:00)
[2019-12-01] MEDS ORDERED: Furosemide 20 MG TAB PO SCH (14:00)
[2019-12-01] MEDS ORDERED: Vancomycin HCl 500 MG in Sodium Chloride 0.9% 250 ML 250 ML IVPB SCH (16:00)
[2019-12-01] MEDS ORDERED: Vancomycin HCl 500 MG in Sodium Chloride 0.9% 100 ML IVPB SCH (17:30)
[2019-12-01] MEDS: HYDROcodone/Acetaminophen 10/325 mg Tablet PO PRN (17:45)
--- NOTE | 2019-12-01 20:38 | RAD ---
THREE VIEWS RIGHT FOOT: Date: 12-01-2019 Provided Clinical History: Right foot swelling without trauma. FINDINGS: No evidence for fracture or other acute osseous abnormality. Alignment appears anatomic. Joint spaces appear preserved. Soft tissue appear radiographically unremarkable. IMPRESSION: No evidence for an acute osseous abnormality or significant arthropathy seen. POS: [facility]
--- NOTE | 2019-12-01 20:40 | RAD ---
LEFT FOOT RADIOGRAPHS THREE VIEWS: Date: 12-01-2019 Provided Clinical History: Swelling without trauma. FINDINGS: Comparison 11-08-2019. There is an indistinct and irregular appearance to the cortex of the base of th e fifth metatarsal laterally that could reflect lytic change. There is no evidence for fracture. Alig nment appears anatomic. Joint spaces appear preserved. IMPRESSION: Lytic changes involving the base of the fifth metatarsal, compatible with osteomyel[facility]. POS: [facility]
[2019-12-01] MEDS: Zolpidem Tartrate 5 MG TAB PO SCH (21:05)
[2019-12-02 05:58] LABS: #Basophils 0.1 thou/uL (0.0-0.2); #Eosinphils 0.5 thou/uL (0.0-0.7); #Lymphocytes 2.4 thou/uL (1.20-3.40); #Monocytes 1.1 thou/uL (0.11-0.59); #Neutrophils 3.8 thou/uL (1.40-6.50); %Basophils 1.8 % (0.0-1.0); %Eosinophils 6.2 % (0.0-10.0); %Lymphocytes 30.6 % (21.0-51.0); %Monocytes 13.5 % (0.0-10.0); %Neutrophils 47.9 % (42.0-75.0); Hemoglobin 9.4 g/dL (14.0-18.0); Mean Corpuscular HGB CONC 31.7 g/dL (32.0-36.0); Mean Corpuscular Hemoglobin 31.9 pg (27.0-31.0); Mean Corpuscular Volume 100.8 fL (78.0-98.0); Mean Platelet Volume 5.6 fL (7.4-10.4); Platelet Count 279 thou/uL (130-400); RBC Distribution Width 12.3 % (11.5-14.5); Red Blood Cell (RBC) Count 2.94 mill/uL (4.70-6.10)
[2019-12-02 06:16] LABS: Anion Gap 15 mmol/L (10-20); BUN (Urea Nitrogen) 35 mg/dL (8.4-25.7); CRP (Inflammatory) 1.16 mg/dL (= or < 0.5); Calc. Creatinine Clearance 41 mL/min (70-130); Calcium 9.1 mg/dL (7.8-10.44); Carbon Dioxide 21 mmol/L (23-31); Chloride 101 mmol/L (98-107); Estimated GFR-MDRD 48; Glucose 82 mg/dL (80-115); Potassium 4.6 mmol/L (3.5-5.1); Sodium 132 mmol/L (136-145)
[2019-12-02] MEDS ORDERED: Furosemide 20 MG TAB PO SCH (09:00)
[2019-12-02] MEDS: Losartan Potassium 50 MG TAB PO SCH (09:40)
[2019-12-02] MEDS: Magnesium Oxide 400 MG TAB PO SCH ×2 (09:40→20:29)
[2019-12-02] MEDS: Bupropion 150 MG XL TAB PO SCH (09:40)
[2019-12-02] MEDS: Loratadine 10 MG TAB PO SCH (09:41)
[2019-12-02] MEDS: Carvedilol 12.5 MG TAB PO SCH ×2 (09:41→16:59)
[2019-12-02] MEDS: Hydrochlorothiazide 25 MG TAB PO SCH (09:41)
[2019-12-02] MEDS: Multivit, Therapeutic 1 TAB PO SCH (09:41)
[2019-12-02] MEDS: Gabapentin 300 MG CAP PO SCH ×2 (09:41→20:29)
[2019-12-02] MEDS: Clopidogrel Bisulfate 75 MG TAB PO SCH (09:41)
[2019-12-02] MEDS: Aspirin Chewable 81 MG TAB PO SCH (09:41)
[2019-12-02] MEDS: Fluticasone Propionate Nasal Spray 16 gm Bottle NASAL SCH (09:42)
[2019-12-02] MEDS: Cefepime 1 GM in Sodium Chloride 0.9% 100 ML IVPB SCH ×2 (09:42→20:54)
[2019-12-02] MEDS: Digoxin 0.125 MG TAB PO SCH (09:42)
[2019-12-02] MEDS: Nicotine 21 MG PATCH TOP SCH (09:43)
[2019-12-02] MEDS: Vancomycin HCl 500 MG in Sodium Chloride 0.9% 100 ML IVPB SCH (15:58)
[2019-12-02] MEDS: Zolpidem Tartrate 5 MG TAB PO SCH (22:34)
[2019-12-03] MEDS: Bupropion 150 MG XL TAB PO SCH (09:22)
[2019-12-03] MEDS: Cefepime 1 GM in Sodium Chloride 0.9% 100 ML IVPB SCH ×2 (09:22→20:37)
[2019-12-03] MEDS: Carvedilol 12.5 MG TAB PO SCH ×2 (09:23→16:52)
[2019-12-03] MEDS: Loratadine 10 MG TAB PO SCH (09:23)
[2019-12-03] MEDS: Gabapentin 300 MG CAP PO SCH ×2 (09:23→20:39)
[2019-12-03] MEDS: Hydrochlorothiazide 25 MG TAB PO SCH (09:23)
[2019-12-03] MEDS: Multivit, Therapeutic 1 TAB PO SCH (09:23)
[2019-12-03] MEDS: Clopidogrel Bisulfate 75 MG TAB PO SCH (09:23)
[2019-12-03] MEDS: Magnesium Oxide 400 MG TAB PO SCH ×2 (09:23→20:39)
[2019-12-03] MEDS: Losartan Potassium 50 MG TAB PO SCH (09:23)
[2019-12-03] MEDS: Nicotine 21 MG PATCH TOP SCH (09:23)
[2019-12-03] MEDS: Aspirin Chewable 81 MG TAB PO SCH (09:23)
[2019-12-03] MEDS: Fluticasone Propionate Nasal Spray 16 gm Bottle NASAL SCH (09:23)
[2019-12-03] MEDS: Digoxin 0.125 MG TAB PO SCH (09:24)
[2019-12-03 15:16] LABS: Vancomycin, Trough 20.5 ug/mL
[2019-12-03] MEDS: Vancomycin HCl 500 MG in Sodium Chloride 0.9% 100 ML IVPB SCH (15:37)
[2019-12-03] MEDS: HYDROcodone/Acetaminophen 10/325 mg Tablet PO PRN (21:50)
[2019-12-03] MEDS: Zolpidem Tartrate 5 MG TAB PO SCH (22:47)
[2019-12-04] MEDS: Multivit, Therapeutic 1 TAB PO SCH (09:57)
[2019-12-04] MEDS: Loratadine 10 MG TAB PO SCH (09:57)
[2019-12-04] MEDS: Clopidogrel Bisulfate 75 MG TAB PO SCH (09:57)
[2019-12-04] MEDS: Bupropion 150 MG XL TAB PO SCH (09:57)
[2019-12-04] MEDS: Hydrochlorothiazide 25 MG TAB PO SCH (09:57)
[2019-12-04] MEDS: Magnesium Oxide 400 MG TAB PO SCH ×2 (09:58→21:30)
[2019-12-04] MEDS: Carvedilol 12.5 MG TAB PO SCH ×2 (09:59→16:43)
[2019-12-04] MEDS: Losartan Potassium 50 MG TAB PO SCH (09:59)
[2019-12-04] MEDS: Digoxin 0.125 MG TAB PO SCH (09:59)
[2019-12-04] MEDS: Aspirin Chewable 81 MG TAB PO SCH (09:59)
[2019-12-04] MEDS: Gabapentin 300 MG CAP PO SCH ×2 (09:59→21:30)
[2019-12-04] MEDS: Cefepime 1 GM in Sodium Chloride 0.9% 100 ML IVPB SCH ×2 (10:00→21:30)
[2019-12-04] MEDS: Nicotine 21 MG PATCH TOP SCH (10:00)
[2019-12-04] MEDS: Fluticasone Propionate Nasal Spray 16 gm Bottle NASAL SCH (10:02)
[2019-12-04] MEDS: Vancomycin HCl 500 MG in Sodium Chloride 0.9% 100 ML IVPB SCH (16:43)
[2019-12-04] MEDS: Zolpidem Tartrate 5 MG TAB PO SCH (21:29)
[2019-12-04] MEDS: HYDROcodone/Acetaminophen 10/325 mg Tablet PO PRN (21:32)
[2019-12-05] MEDS: Fluticasone Propionate Nasal Spray 16 gm Bottle NASAL SCH (08:53)
[2019-12-05] MEDS: Cefepime 1 GM in Sodium Chloride 0.9% 100 ML IVPB SCH ×2 (08:53→20:16)
[2019-12-05] MEDS: Nicotine 21 MG PATCH TOP SCH (08:54)
[2019-12-05] MEDS: Loratadine 10 MG TAB PO SCH (08:55)
[2019-12-05] MEDS: Losartan Potassium 50 MG TAB PO SCH (08:55)
[2019-12-05] MEDS: Gabapentin 300 MG CAP PO SCH ×2 (08:55→20:17)
[2019-12-05] MEDS: Digoxin 0.125 MG TAB PO SCH (08:55)
[2019-12-05] MEDS: Hydrochlorothiazide 25 MG TAB PO SCH (08:55)
[2019-12-05] MEDS: Aspirin Chewable 81 MG TAB PO SCH (08:55)
[2019-12-05] MEDS: Carvedilol 12.5 MG TAB PO SCH ×2 (08:55→17:07)
[2019-12-05] MEDS: Magnesium Oxide 400 MG TAB PO SCH ×2 (08:55→20:16)
[2019-12-05] MEDS: Multivit, Therapeutic 1 TAB PO SCH (08:56)
[2019-12-05] MEDS: Clopidogrel Bisulfate 75 MG TAB PO SCH (08:56)
[2019-12-05] MEDS: Bupropion 150 MG XL TAB PO SCH (08:56)
[2019-12-05 15:53] LABS: Vancomycin, Trough 19.7 ug/mL
[2019-12-05] MEDS: Vancomycin HCl 500 MG in Sodium Chloride 0.9% 100 ML IVPB SCH (16:33)
[2019-12-05] MEDS: Zolpidem Tartrate 5 MG TAB PO SCH (20:17)
[2019-12-06] MEDS: Losartan Potassium 50 MG TAB PO SCH (08:49)
[2019-12-06] MEDS: Loratadine 10 MG TAB PO SCH (08:49)
[2019-12-06] MEDS: Carvedilol 12.5 MG TAB PO SCH ×2 (08:49→16:57)
[2019-12-06] MEDS: Hydrochlorothiazide 25 MG TAB PO SCH (08:49)
[2019-12-06] MEDS: Bupropion 150 MG XL TAB PO SCH (08:49)
[2019-12-06] MEDS: Aspirin Chewable 81 MG TAB PO SCH (08:49)
[2019-12-06] MEDS: Clopidogrel Bisulfate 75 MG TAB PO SCH (08:49)
[2019-12-06] MEDS: Magnesium Oxide 400 MG TAB PO SCH ×2 (08:49→21:48)
[2019-12-06] MEDS: Nicotine 21 MG PATCH TOP SCH (08:49)
[2019-12-06] MEDS: Multivit, Therapeutic 1 TAB PO SCH (08:49)
[2019-12-06] MEDS: Cefepime 1 GM in Sodium Chloride 0.9% 100 ML IVPB SCH ×2 (08:50→21:47)
[2019-12-06] MEDS: Gabapentin 300 MG CAP PO SCH ×2 (08:50→21:48)
[2019-12-06] MEDS: Fluticasone Propionate Nasal Spray 16 gm Bottle NASAL SCH (08:50)
[2019-12-06] MEDS: Digoxin 0.125 MG TAB PO SCH (08:51)
[2019-12-06] MEDS ORDERED: Sodium Chloride Irrig Solution 250 ML BOT ONE (12:56)
[2019-12-06] MEDS: Vancomycin HCl 500 MG in Sodium Chloride 0.9% 100 ML IVPB SCH (16:58)
[2019-12-06] MEDS: Zolpidem Tartrate 5 MG TAB PO SCH (21:52)
[2019-12-07] MEDS: HYDROcodone/Acetaminophen 10/325 mg Tablet PO PRN ×2 (03:48→20:55)
[2019-12-07] MEDS: Bupropion 150 MG XL TAB PO SCH (09:02)
[2019-12-07] MEDS: Magnesium Oxide 400 MG TAB PO SCH ×2 (09:02→20:55)
[2019-12-07] MEDS: Losartan Potassium 50 MG TAB PO SCH (09:02)
[2019-12-07] MEDS: Carvedilol 12.5 MG TAB PO SCH ×2 (09:03→16:54)
[2019-12-07] MEDS: Loratadine 10 MG TAB PO SCH (09:03)
[2019-12-07] MEDS: Hydrochlorothiazide 25 MG TAB PO SCH (09:03)
[2019-12-07] MEDS: Cefepime 1 GM in Sodium Chloride 0.9% 100 ML IVPB SCH ×2 (09:03→20:54)
[2019-12-07] MEDS: Multivit, Therapeutic 1 TAB PO SCH (09:03)
[2019-12-07] MEDS: Clopidogrel Bisulfate 75 MG TAB PO SCH (09:03)
[2019-12-07] MEDS: Gabapentin 300 MG CAP PO SCH ×2 (09:03→21:02)
[2019-12-07] MEDS: Digoxin 0.125 MG TAB PO SCH (09:03)
[2019-12-07] MEDS: Fluticasone Propionate Nasal Spray 16 gm Bottle NASAL SCH (09:03)
[2019-12-07] MEDS: Aspirin Chewable 81 MG TAB PO SCH (09:03)
[2019-12-07] MEDS: Nicotine 21 MG PATCH TOP SCH (09:04)
[2019-12-07] MEDS ORDERED: Activase 2 MG VIAL CATH SCH (15:30)
[2019-12-07] MEDS ORDERED: Sterile Water 10 ML VIAL IVP SCH (15:30)
[2019-12-07 16:35] LABS: Vancomycin, Trough 18.9 ug/mL
[2019-12-07] MEDS: Vancomycin HCl 500 MG in Sodium Chloride 0.9% 100 ML IVPB SCH (16:54)
[2019-12-07] MEDS: Zolpidem Tartrate 5 MG TAB PO SCH (21:02)
[2019-12-08] MEDS: Losartan Potassium 50 MG TAB PO SCH (08:47)
[2019-12-08] MEDS: Digoxin 0.125 MG TAB PO SCH (08:47)
[2019-12-08] MEDS: Magnesium Oxide 400 MG TAB PO SCH ×2 (08:47→21:44)
[2019-12-08] MEDS: Hydrochlorothiazide 25 MG TAB PO SCH (08:48)
[2019-12-08] MEDS: Loratadine 10 MG TAB PO SCH (08:49)
[2019-12-08] MEDS: Carvedilol 12.5 MG TAB PO SCH ×2 (08:49→17:03)
[2019-12-08] MEDS: Aspirin Chewable 81 MG TAB PO SCH (08:50)
[2019-12-08] MEDS: Bupropion 150 MG XL TAB PO SCH (08:50)
[2019-12-08] MEDS: Clopidogrel Bisulfate 75 MG TAB PO SCH (08:50)
[2019-12-08] MEDS: Nicotine 21 MG PATCH TOP SCH (08:50)
[2019-12-08] MEDS: Multivit, Therapeutic 1 TAB PO SCH (08:50)
[2019-12-08] MEDS: Gabapentin 300 MG CAP PO SCH ×2 (09:03→21:48)
[2019-12-08] MEDS: Fluticasone Propionate Nasal Spray 16 gm Bottle NASAL SCH (09:03)
[2019-12-08] MEDS: Cefepime 1 GM in Sodium Chloride 0.9% 100 ML IVPB SCH ×2 (09:47→21:44)
[2019-12-08] MEDS: Vancomycin HCl 500 MG in Sodium Chloride 0.9% 100 ML IVPB SCH (16:19)
[2019-12-08] MEDS: Zolpidem Tartrate 5 MG TAB PO SCH ×2 (21:48→22:24)
[2019-12-08] MEDS: HYDROcodone/Acetaminophen 10/325 mg Tablet PO PRN (22:23)
[2019-12-09 05:46] LABS: #Basophils 0.2 thou/uL (0.0-0.2); #Eosinphils 0.3 thou/uL (0.0-0.7); #Lymphocytes 2.1 thou/uL (1.20-3.40); #Monocytes 1.1 thou/uL (0.11-0.59); #Neutrophils 4.7 thou/uL (1.40-6.50); %Basophils 2.2 % (0.0-1.0); %Eosinophils 3.6 % (0.0-10.0); %Lymphocytes 24.9 % (21.0-51.0); %Monocytes 13.2 % (0.0-10.0); %Neutrophils 56.1 % (42.0-75.0); Hemoglobin 9.9 g/dL (14.0-18.0); Mean Corpuscular HGB CONC 32.1 g/dL (32.0-36.0); Mean Corpuscular Hemoglobin 31.8 pg (27.0-31.0); Mean Corpuscular Volume 99.3 fL (78.0-98.0); Mean Platelet Volume 5.8 fL (7.4-10.4); Platelet Count 334 thou/uL (130-400); RBC Distribution Width 12.2 % (11.5-14.5); White Blood Cell (WBC) Count 8.5 thou/uL (4.8-10.8)
[2019-12-09 07:35] LABS: BUN (Urea Nitrogen) 19 mg/dL (8.4-25.7); Calc. Creatinine Clearance 51 mL/min (70-130); Calcium 8.9 mg/dL (7.8-10.44); Carbon Dioxide 22 mmol/L (23-31); Chloride 105 mmol/L (98-107); Estimated GFR-MDRD 60; Glucose 80 mg/dL (80-115); Potassium 4.5 mmol/L (3.5-5.1); Sodium 135 mmol/L (136-145)
[2019-12-09 07:36] LABS: Anion Gap 13 mmol/L (10-20); CRP (Inflammatory) 0.66 mg/dL (= or < 0.5)
[2019-12-09] MEDS: Loratadine 10 MG TAB PO SCH (09:47)
[2019-12-09] MEDS: Losartan Potassium 50 MG TAB PO SCH (09:47)
[2019-12-09] MEDS: Digoxin 0.125 MG TAB PO SCH (09:47)
[2019-12-09] MEDS: Hydrochlorothiazide 25 MG TAB PO SCH (09:48)
[2019-12-09] MEDS: Carvedilol 12.5 MG TAB PO SCH ×2 (09:48→16:48)
[2019-12-09] MEDS: Aspirin Chewable 81 MG TAB PO SCH (09:49)
[2019-12-09] MEDS: Bupropion 150 MG XL TAB PO SCH (09:49)
[2019-12-09] MEDS: Clopidogrel Bisulfate 75 MG TAB PO SCH (09:49)
[2019-12-09] MEDS: Magnesium Oxide 400 MG TAB PO SCH ×2 (09:49→22:06)
[2019-12-09] MEDS: Multivit, Therapeutic 1 TAB PO SCH (09:49)
[2019-12-09] MEDS: Cefepime 1 GM in Sodium Chloride 0.9% 100 ML IVPB SCH ×2 (09:49→22:07)
[2019-12-09] MEDS: Fluticasone Propionate Nasal Spray 16 gm Bottle NASAL SCH (09:50)
[2019-12-09] MEDS: Gabapentin 300 MG CAP PO SCH ×2 (09:50→22:07)
[2019-12-09] MEDS: Nicotine 21 MG PATCH TOP SCH (09:51)
[2019-12-09 15:33] LABS: Vancomycin, Trough 18.7 ug/mL
[2019-12-09] MEDS: Vancomycin HCl 500 MG in Sodium Chloride 0.9% 100 ML IVPB SCH (16:48)
[2019-12-09] MEDS: Zolpidem Tartrate 5 MG TAB PO SCH (22:07)
[2019-12-10] MEDS: Fluticasone Propionate Nasal Spray 16 gm Bottle NASAL SCH (08:57)
[2019-12-10] MEDS: Nicotine 21 MG PATCH TOP SCH (08:57)
[2019-12-10] MEDS: Gabapentin 300 MG CAP PO SCH ×2 (08:57→21:07)
[2019-12-10] MEDS: Loratadine 10 MG TAB PO SCH (08:58)
[2019-12-10] MEDS: Magnesium Oxide 400 MG TAB PO SCH ×2 (08:58→21:07)
[2019-12-10] MEDS: Losartan Potassium 50 MG TAB PO SCH (08:58)
[2019-12-10] MEDS: Clopidogrel Bisulfate 75 MG TAB PO SCH (08:58)
[2019-12-10] MEDS: Carvedilol 12.5 MG TAB PO SCH ×2 (08:58→17:00)
[2019-12-10] MEDS: Aspirin Chewable 81 MG TAB PO SCH (08:58)
[2019-12-10] MEDS: Multivit, Therapeutic 1 TAB PO SCH (08:58)
[2019-12-10] MEDS: Bupropion 150 MG XL TAB PO SCH (08:58)
[2019-12-10] MEDS: Digoxin 0.125 MG TAB PO SCH (08:59)
[2019-12-10] MEDS: Hydrochlorothiazide 25 MG TAB PO SCH (08:59)
[2019-12-10] MEDS: Cefepime 1 GM in Sodium Chloride 0.9% 100 ML IVPB SCH ×2 (09:00→21:06)
[2019-12-10] MEDS: Vancomycin HCl 500 MG in Sodium Chloride 0.9% 100 ML IVPB SCH (16:02)
[2019-12-10] MEDS: Zolpidem Tartrate 5 MG TAB PO SCH (21:08)
[2019-12-10] MEDS: HYDROcodone/Acetaminophen 10/325 mg Tablet PO PRN (21:10)
[2019-12-11] MEDS: Bupropion 150 MG XL TAB PO SCH (09:07)
[2019-12-11] MEDS: Digoxin 0.125 MG TAB PO SCH (09:07)
[2019-12-11] MEDS: Losartan Potassium 50 MG TAB PO SCH (09:07)
[2019-12-11] MEDS: Carvedilol 12.5 MG TAB PO SCH ×2 (09:07→17:05)
[2019-12-11] MEDS: Hydrochlorothiazide 25 MG TAB PO SCH (09:07)
[2019-12-11] MEDS: Magnesium Oxide 400 MG TAB PO SCH ×2 (09:07→21:04)
[2019-12-11] MEDS: Clopidogrel Bisulfate 75 MG TAB PO SCH (09:07)
[2019-12-11] MEDS: Multivit, Therapeutic 1 TAB PO SCH (09:07)
[2019-12-11] MEDS: Aspirin Chewable 81 MG TAB PO SCH (09:07)
[2019-12-11] MEDS: Loratadine 10 MG TAB PO SCH (09:07)
[2019-12-11] MEDS: Cefepime 1 GM in Sodium Chloride 0.9% 100 ML IVPB SCH ×2 (09:08→21:04)
[2019-12-11] MEDS: Nicotine 21 MG PATCH TOP SCH (09:08)
[2019-12-11] MEDS: Fluticasone Propionate Nasal Spray 16 gm Bottle NASAL SCH (09:08)
[2019-12-11] MEDS: Gabapentin 300 MG CAP PO SCH (09:08)
[2019-12-11] MEDS ORDERED: Zolpidem Tartrate 5 MG TAB PO PRN (10:18)
[2019-12-11] MEDS: Vancomycin HCl 500 MG in Sodium Chloride 0.9% 100 ML IVPB SCH (16:14)
[2019-12-12] MEDS: Bupropion 150 MG XL TAB PO SCH (08:52)
[2019-12-12] MEDS: Clopidogrel Bisulfate 75 MG TAB PO SCH (08:52)
[2019-12-12] MEDS: Carvedilol 12.5 MG TAB PO SCH ×2 (08:52→17:39)
[2019-12-12] MEDS: Losartan Potassium 50 MG TAB PO SCH (08:52)
[2019-12-12] MEDS: Hydrochlorothiazide 25 MG TAB PO SCH (08:53)
[2019-12-12] MEDS: Magnesium Oxide 400 MG TAB PO SCH ×2 (08:53→20:42)
[2019-12-12] MEDS: Loratadine 10 MG TAB PO SCH (08:53)
[2019-12-12] MEDS: Aspirin Chewable 81 MG TAB PO SCH (08:54)
[2019-12-12] MEDS: Digoxin 0.125 MG TAB PO SCH (08:54)
[2019-12-12] MEDS: Cefepime 1 GM in Sodium Chloride 0.9% 100 ML IVPB SCH ×2 (08:58→20:42)
[2019-12-12] MEDS: Fluticasone Propionate Nasal Spray 16 gm Bottle NASAL SCH (09:13)
[2019-12-12] MEDS: Nicotine 21 MG PATCH TOP SCH (09:13)
[2019-12-12 16:17] LABS: Vancomycin, Trough 21.2 ug/mL
[2019-12-12] MEDS: Vancomycin HCl 500 MG in Sodium Chloride 0.9% 100 ML IVPB SCH (17:39)
[2019-12-13] MEDS: Hydrochlorothiazide 25 MG TAB PO SCH (09:34)
[2019-12-13] MEDS: Losartan Potassium 50 MG TAB PO SCH (09:34)
[2019-12-13] MEDS: Aspirin Chewable 81 MG TAB PO SCH (09:34)
[2019-12-13] MEDS: Loratadine 10 MG TAB PO SCH (09:34)
[2019-12-13] MEDS: Clopidogrel Bisulfate 75 MG TAB PO SCH (09:34)
[2019-12-13] MEDS: Digoxin 0.125 MG TAB PO SCH (09:35)
[2019-12-13] MEDS: Carvedilol 12.5 MG TAB PO SCH ×2 (09:35→17:29)
[2019-12-13] MEDS: Magnesium Oxide 400 MG TAB PO SCH ×2 (09:35→20:09)
[2019-12-13] MEDS: Bupropion 150 MG XL TAB PO SCH (09:35)
[2019-12-13] MEDS: Cefepime 1 GM in Sodium Chloride 0.9% 100 ML IVPB SCH ×2 (09:35→20:07)
[2019-12-13] MEDS: Fluticasone Propionate Nasal Spray 16 gm Bottle NASAL SCH (09:37)
[2019-12-13] MEDS: Nicotine 21 MG PATCH TOP SCH (09:37)
[2019-12-13] MEDS: Vancomycin HCl 500 MG in Sodium Chloride 0.9% 100 ML IVPB SCH (16:22)
[2019-12-13] MEDS ORDERED: Vancomycin HCl 500 MG in Sodium Chloride 0.9% 100 ML IVPB SCH (16:30)
[2019-12-13] MEDS: HYDROcodone/Acetaminophen 10/325 mg Tablet PO PRN (20:08)
[2019-12-14] MEDS: Hydrochlorothiazide 25 MG TAB PO SCH (08:50)
[2019-12-14] MEDS: Bupropion 150 MG XL TAB PO SCH (08:50)
[2019-12-14] MEDS: Loratadine 10 MG TAB PO SCH (08:50)
[2019-12-14] MEDS: Aspirin Chewable 81 MG TAB PO SCH (08:50)
[2019-12-14] MEDS: Clopidogrel Bisulfate 75 MG TAB PO SCH (08:50)
[2019-12-14] MEDS: Digoxin 0.125 MG TAB PO SCH (08:50)
[2019-12-14] MEDS: Losartan Potassium 50 MG TAB PO SCH (08:51)
[2019-12-14] MEDS: Carvedilol 12.5 MG TAB PO SCH ×2 (08:51→17:01)
[2019-12-14] MEDS: Magnesium Oxide 400 MG TAB PO SCH ×2 (08:51→20:56)
[2019-12-14] MEDS: Cefepime 1 GM in Sodium Chloride 0.9% 100 ML IVPB SCH ×2 (08:51→20:56)
[2019-12-14] MEDS: Nicotine 21 MG PATCH TOP SCH (08:51)
[2019-12-14] MEDS: Fluticasone Propionate Nasal Spray 16 gm Bottle NASAL SCH (08:52)
[2019-12-14 18:55] LABS: Vancomycin, Random 17.2 ug/mL (See Comment)
[2019-12-14] MEDS ORDERED: [UNRECOGNIZED DRUG - MIXTURE] FS PRN (20:03)
[2019-12-14] MEDS ORDERED: Vancomycin HCl 500 MG in Sodium Chloride 0.9% 100 ML IVPB SCH (20:15)
[2019-12-14] MEDS: [UNRECOGNIZED DRUG - MIXTURE] FS SCH (20:56)
[2019-12-15 08:57] VITALS: BP 126/78; TEMP 97.4
[2019-12-15] MEDS: Clopidogrel Bisulfate 75 MG TAB PO SCH (09:04)
[2019-12-15] MEDS: Loratadine 10 MG TAB PO SCH (09:04)
[2019-12-15] MEDS: Digoxin 0.125 MG TAB PO SCH (09:04)
[2019-12-15] MEDS: Hydrochlorothiazide 25 MG TAB PO SCH (09:05)
[2019-12-15] MEDS: Aspirin Chewable 81 MG TAB PO SCH (09:05)
[2019-12-15] MEDS: Losartan Potassium 50 MG TAB PO SCH (09:06)
[2019-12-15] MEDS: Bupropion 150 MG XL TAB PO SCH (09:06)
[2019-12-15] MEDS: Carvedilol 12.5 MG TAB PO SCH (09:06)
[2019-12-15] MEDS: [UNRECOGNIZED DRUG - MIXTURE] FS SCH (09:08)
[2019-12-15] MEDS: Fluticasone Propionate Nasal Spray 16 gm Bottle NASAL SCH (09:27)
[2019-12-15] MEDS: Cefepime 1 GM in Sodium Chloride 0.9% 100 ML IVPB SCH (09:27)
[2019-12-15] MEDS: Magnesium Oxide 400 MG TAB PO SCH (09:28)
[2019-12-15] MEDS: Nicotine 21 MG PATCH TOP SCH (09:28)
[2019-12-15 10:45] VITALS: BMI 17.9
[2019-12-15] MEDS ORDERED: Emollient 15 oz bottle 450 ML, Triamcinolone Acetonide 200 MG TOP PRN (12:29)
[2019-12-15] MEDS ORDERED: Vancomycin HCl 500 MG in Sodium Chloride 0.9% 100 ML IVPB SCH (16:00)
[2019-12-15] MEDS ORDERED: Emollient 15 oz bottle 450 ML, Triamcinolone Acetonide 200 MG TOP SCH (21:00)
--- NOTE | 2019-12-16 08:06 | DIS ---
DATE OF ADMISSION: 11/14/2019 DATE OF DISCHARGE: 12/15/2019 DISCHARGING PHYSICIAN: Sharmila Chavira MD PRIMARY CARE PHYSICIAN: Trevor Vaz. DISCHARGE DISPOSITION: Back to his home. DISCHARGE MEDICATIONS: 1. [place] 1 tab q.6 p.r.n. 2. DuoNeb q.6 p.r.n. shortness of breath or wheezing. 3. Wellbutrin 150 daily. 4. Coreg 12.5 b.i.d. 5. Plavix 75 daily. 6. Digoxin 0.125 q.a.m. 7. Hydrochlorothiazide 12.5 daily. 8. Claritin 10 daily. 9. Losartan 50 daily. 10. K-Dur 40. 11. Multivitamin one tab daily. 12. Aspirin 81 mg daily. DISCHARGE INSTRUCTIONS: The patient advised to follow up with PCP in 1 week and follow up with Dr. He Infectious Disease specialist in 1 week. BRIEF HOSPITAL COURSE: Mr. Ashish Young is a 64-year-old male with a history of ALS who is wheelchair bound and with a history of MRSA endocarditis in 2017. The patient was admitted to [facility] in [place], November 07 to November 13 due to infected ulcer and osteomyelitis on the left foot. The patient was seen by the ID specialist, Dr. eH, who recommended vancomycin and cefepime for a total of six weeks. Antibiotic was meant to be completed on 12/23/2019. Patient was admitted to [facility] for correction IV antibiotics, wound care and skilled rehabilitation. The patient during hospitalization had weekly labs done and faxed to ID specialist, Dr. He. Initially when patient was admitted, he was tolerating IV antibiotics and was tolerating physical therapy and occupational therapy though very resistant. 2 weeks into admission, patient became abusive to therapist and declined therapies. So therapy was discontinued and the patient was just admitted for these IV antibiotics and wound care. Throughout hospitalization, the patient was very rude to nursing staff, very irritable, had moments where he declined his medications or stated we were making him worse than getting better. The patient declined wound care multiple times, and on occasions required redirecting. His medications Wellbutrin was increased to 300mg as he stated he takes 2 at home sometimes. He also complained of insomnia and Ambien was started. He only took Ambien for a couple of day then stopped med and requested his gabapentin be discontinued and Wellbutrin decreased back to 150mg. We tried accommodating his wishes but majority of the time in facility he was not satisfied with our care and declined care. The patient was able to continue IV antibiotics until December 11. He declined to use IV antibiotic December 13 and today December 14, and stated he wanted to go home and not complete the full course per recommendation of ID specialist. I tried persuading the patient and he was very irritable, very rude and using some foul language. He stated he was tired of everyone in this hospital and he wanted to be discharged home. I notified the patient he was being discharged against medical advice and he states that, that was okay. The patient's PICC line was discontinued and he was discharged home in a stable condition. The patient was advised to follow up with Dr. He and encouraged to continue wound care to his foot. DISCHARGE VITAL SIGNS: Temperature 97.4, pulse 87, respirations 16, O2 saturation 99% on room air, blood pressure 126/78. DISCHARGE DIAGNOSES: 1. Left foot osteomyelitis. 2. Left foot ulcer. 3. Chronic atrial fibrillation. 4. ALS. 5. Tobacco abuse. 6. Chronic kidney disease. 7. Hypertension. CODE STATUS: DNR. Job ID: [id number] MTDD
== END 2019-12-15 12:55 | disposition home or self-care (01) | DRG 540 ==
LOC: MADMS 19:02
PROVIDERS: ADMIT Family Medicine; ATTEND Family Medicine
DX: M86.172 Other acute osteomyelitis, left ankle and foot (principal); I48.20 Chronic atrial fibrillation, unspecified; G12.21 Amyotrophic lateral sclerosis; B37.0 Candidal stomatitis; L97.529 Non-pressure chronic ulcer of other part of left foot with unspecified severity; F17.200 Nicotine dependence, unspecified, uncomplicated; I12.9 Hypertensive chronic kidney disease with stage 1 through stage 4 chronic kidney disease, or unspecified chronic kidney disease; N18.9 Chronic kidney disease, unspecified; F51.01 Primary insomnia; F44.4 Conversion disorder with motor symptom or deficit; R45.1 Restlessness and agitation; F32.9 Major depressive disorder, single episode, unspecified; R53.81 Other malaise; K08.89 Other specified disorders of teeth and supporting structures; I73.9 Peripheral vascular disease, unspecified; R19.7 Diarrhea, unspecified
CPT/HCPCS: 36415; 80048; 80202; 82565; 84520; 85025; 86140; 94640; J0692; J1650; J2997; J3301; J3370; J3490; J7050; J7620

== ENCOUNTER 2022-05-23 14:14 | Emergency (ER) | payer MEDICARE, OTHER | END 2022-05-23 15:35 | disposition home or self-care (01) | LOC: MADERS 14:14 | DX: S80.12XA Contusion of left lower leg, initial encounter (principal); I48.91 Unspecified atrial fibrillation; I10 Essential (primary) hypertension; F17.210 Nicotine dependence, cigarettes, uncomplicated; W22.8XXA Striking against or struck by other objects, initial encounter ==

== ENCOUNTER 2024-09-26 12:50 | Emergency (ER) | payer MEDICARE, MEDICAID ==
[2024-09-26] MEDS ORDERED: predniSONE 20 MG TAB ONE (13:48)
[2024-09-26] MEDS ORDERED: Albuterol 200 PUFF (6.7GM INHALER) ONE (13:48)
[2024-09-26] MEDS ORDERED: Amoxicillin/Potassium Clav 875 MG TAB ONE (13:48)
== END 2024-09-26 14:42 | disposition home or self-care (01) ==
LOC: MADERS 12:50
DX: J44.1 Chronic obstructive pulmonary disease with (acute) exacerbation (principal); I10 Essential (primary) hypertension; I48.91 Unspecified atrial fibrillation; F17.210 Nicotine dependence, cigarettes, uncomplicated; Z79.899 Other long term (current) drug therapy; Z79.82 Long term (current) use of aspirin
CPT/HCPCS: 71045; J7512